=== PATIENT | female | born 1980 | race American Indian/Alaskan Native ===

== ENCOUNTER 2016-10-02 11:55 | Emergency (ER) | payer SELFPAY ==
[2016-10-02] MEDS ORDERED: VALIUM PO ONE (14:41)
[2016-10-02] MEDS ORDERED: NORCO 5/325 PO ONE (14:41)
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
[2016-10-02 16:46] VITALS: BP 120/76
== END 2016-10-02 16:47 | disposition home or self-care (01) ==
LOC: ED 11:55
DX: S19.9XXA Unspecified injury of neck, initial encounter (principal); F17.200 Nicotine dependence, unspecified, uncomplicated; Z88.0 Allergy status to penicillin; Y08.89XA Assault by other specified means, initial encounter; Y93.89 Activity, other specified; Y99.8 Other external cause status; Y92.89 Other specified places as the place of occurrence of the external cause
CPT/HCPCS: 70360; 99283

== ENCOUNTER 2018-01-01 15:24 | Emergency (ER) | payer SELFPAY ==
[2018-01-01 15:32] VITALS: BP 126/74
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
[2018-01-01 17:33] LABS: Basophils % (Auto) 0.1 % (0.0-1.8); Eosinophils % (Auto) 0.1 % (0.0-4.3); Hematocrit 40.7 % (30.3-42.9); Hemoglobin 13.6 gm/dl (10.1-14.3); Mean Corpuscular HGB Conc 33 % (30-34); Mean Corpuscular Hemoglobin 30 pg (28-32); Mean Corpuscular Volume 89 fl (79-97); Monocytes # (Auto) 0.6 K/mm3 (0.0-0.8); Platelet Count 263 K/mm3 (140-440); Red Cell Distribution Width 13.4 % (13.2-15.2)
[2018-01-01 17:49] LABS: Alanine Aminotransferase 19 units/L (7-56); Albumin 5.3 g/dL (3.9-5); BUN/Creatinine Ratio 26; Blood Urea Nitrogen 13 mg/dL (7-17); Hemolysis Index 0; Lipase 11 units/L (13-60)
[2018-01-01] MEDS ORDERED: K-DUR PO ONE (19:07)
[2018-01-01] MEDS ORDERED: ZOFRAN ODT PO ONE (19:07)
--- NOTE | 2018-01-01 20:40 | Cat Scan Report ---
FINAL REPORT PROCEDURE: CT ABDOMEN PELVIS WO CON TECHNIQUE: Computerized axial tomography of the abdomen and pelvis was performed without intravenous contrast. This study is performed without intravascular contrast material and its sensitivity for abdominal and pelvic pathology, including neoplasms, inflammation, abscess, free fluid, thrombosis, arterial dissection and infarction, is reduced compared with a contrast enhanced study. HISTORY: abdominal pain COMPARISON: No prior studies are available for comparison. FINDINGS: Liver, spleen, pancreas and adrenal glands are within normal limits. Bilateral kidneys demonstrate normal density without calculi or hydronephrosis. Urinary bladder is partially filled with normal outlines. Aorta is of normal caliber. Minimal free fluid is noted in the pelvic cavity which is within physiologic limits. There is no free air. Gallbladder is unremarkable. Small bowel loops are within normal limits. An IUD is noted within the uterus. Appendix is normal. Vertebral height is normal. IMPRESSION: No acute intra-abdominal or pelvic pathology..
== END 2018-01-01 21:27 | disposition home or self-care (01) ==
LOC: ED 15:24
DX: K52.9 Noninfective gastroenteritis and colitis, unspecified (principal); G43.909 Migraine, unspecified, not intractable, without status migrainosus; F17.200 Nicotine dependence, unspecified, uncomplicated; Z88.0 Allergy status to penicillin
CPT/HCPCS: 36415; 74176; 80053; 83690; 85025; 99284; Q0162